=== PATIENT | female | born 1995 | race Caucasian/White ===

== ENCOUNTER → 2021-05-04 13:45 | Outpatient (CLI) | payer OTHER, SELFPAY ==
--- NOTE | 2021-05-04 13:47 | DI.MRI.S_ITS ---
PROCEDURE: MR SHOULDER LT WO CON INDICATIONS: CERVICAL PAIN; LEFT ROTATOR CUFF TENDINOPATHY TECHNIQUE: Noncontrast oblique coronal T2 fast spin echo with fat saturation, oblique sagittal T1 spin echo and T2 fast spin echo with fat saturation, axial T1 spin echo and T2 fast spin echo with fat saturation through the shoulder. COMPARISON: None. FINDINGS: Image quality: Excellent. Rotator cuff: The supraspinatus, infraspinatus, and subscapularis tendons appear intact throughout. Sagittal images demonstrate no muscle atrophy. Bones and bursae: No bone marrow contusions or fractures. No acromioclavicular joint degeneration. The acromion demonstrates conventional anatomy, without an os acromiale. No pathologic subacromial-subdeltoid or subcoracoid bursal fluid is present. Capsule and soft tissues: Labrum is grossly unremarkable The long head of the biceps tendon demonstrates normal location and morphology. The rotator interval appears normal, without fibrosis. The coracohumeral ligament is normal in thickness. IMPRESSION: Negative examination. Dictated by: Fran Burden M.D. on 05/04/2021 at 15:38 Approved by: Fran Burden M.D. on 05/04/2021 at 15:39
--- NOTE | 2021-05-04 14:38 | DI.MRI.S_ITS ---
PROCEDURE: MR CERVICAL SPINE WO CON INDICATIONS: CERVICAL PAIN; LEFT ROTATOR CUFF TENDINOPATHY TECHNIQUE: Noncontrast sagittal T1 spin echo and T2 fast spin echo, sagittal STIR, foraminal oblique sagittal T2 fast spin echo, and axial gradient echo or T2 fast spin echo through the cervical spine. COMPARISON: None. FINDINGS: Motion degraded exam. Normal configuration of the craniocervical junction. Straightening of the usual cervical lordosis. No listhesis. Vertebral body heights maintained. No suspicious focal marrow signal abnormality or bone marrow edema. Prevertebral and paraspinous soft tissues are normal. There is questionably increased T2 signal of the cord at the C5-C6 and C6-C7 levels, corresponding to areas of moderate to severe spinal canal stenosis with cord deformation by posterior disc osteophyte complexes. No syrinx. C2-C3: No spinal canal or neural foraminal stenosis. C3-C4: No spinal canal or neural foraminal stenosis. C4-C5: No spinal canal or neural foraminal stenosis. C5-C6: Moderate spinal canal stenosis due to posterior disc-osteophyte complex with central and right paracentral disc extrusion flattening and indenting the ventral cord. No neural foraminal stenosis. C6-C7: Moderate spinal canal stenosis due to posterior disc osteophyte complex with a disc extrusion spanning the paracentral zones which flattens and indents the ventral cord. No neural foraminal stenosis. C7-T1: No spinal canal or neural foraminal stenosis. IMPRESSION: Moderate spinal canal stenosis at C5-C6 and C6-C7, due to posterior disc-osteophyte complexes and disc extrusions at both levels. Questionable cord signal abnormalities at these levels may represent edema due to stenosis. Dictated by: Rashad Nuñez M.D. on 05/04/2021 at 16:03 Approved by: Rashad Nuñez M.D. on 05/04/2021 at 16:06
== END ==
PROVIDERS: PCP Student in an Organized Health Care Education/Training Program; Referring Provider Physical Medicine & Rehabilitation; Visit Provider Physical Medicine & Rehabilitation
DX: M54.12 Radiculopathy, cervical region (principal); M67.912 Unspecified disorder of synovium and tendon, left shoulder; M48.02 Spinal stenosis, cervical region; M25.78 Osteophyte, vertebrae; M50.222 Other cervical disc displacement at C5-C6 level
CPT/HCPCS: 72141; 73221